=== PATIENT | female | born 1975 | race Caucasian/White ===

== ENCOUNTER 2018-10-07 16:54 | Emergency (ER) | payer BC ==
[2018-10-07] MEDS ORDERED: NORMAL SALINE 1000 ML 1,000 ML IV ONE (20:13)
[2018-10-07] MEDS ORDERED: ONDANSETRON HCL INJ/PF 4 MG/2 ML SDV IV ONE (20:13)
[2018-10-07] MEDS ORDERED: DICYCLOMINE HCL 20 MG TABLET PO ONE (20:14)
--- NOTE | 2018-10-07 20:17 | ER Document Report ---
ED Medical Screen (RME) - General Chief Complaint: Diarrhea Stated Complaint: DIARREHA Time Seen by Provider: 10/07/18 20:13 Mode of Arrival: Ambulatory Information source: Patient Notes: Patient presents with nausea vomiting diarrhea for the past 2 weeks. Patient patient denies any fever or blood in the stool. Patient does complain of lower pelvic cramping. Patient has been taking Imodium for the past several days without improvement of her symptoms. hx: Hypertension, cholesterol, hypothyroidism, anemia, cholecystectomy, tonsillectomy, right hip surgery I have greeted and performed a rapid initial assessment of this patient. A comprehensive ED assessment and evaluation of the patient, analysis of test results and completion of the medical decision making process will be conducted by additional ED providers. - Related Data Allergies/Adverse Reactions: sulfamethoxazole [From Bactrim] Allergy (Verified 10/07/18 16:56) trimethoprim [From Bactrim] Allergy (Verified 10/07/18 16:56) Physical Exam - Vital signs Vitals: Temp Pulse Resp BP Pulse Ox 98.0 F 86 18 126/80 H 98 10/07/18 16:57 10/07/18 16:57 10/07/18 16:57 10/07/18 16:57 10/07/18 16:57 - General Notes: Lower pelvic tenderness Course - Vital Signs Vital signs: Temp Pulse Resp BP Pulse Ox 98.0 F 86 18 126/80 H 98 10/07/18 16:57 10/07/18 16:57 10/07/18 16:57 10/07/18 16:57 10/07/18 16:57
[2018-10-07 22:09] LABS: ABSOLUTE EOSINOPHILS # (AUTO) 0.2 10^3/uL (0.0-0.6); ABSOLUTE LYMPHOCYTES (AUTO) 3.1 10^3/uL (0.5-4.7); ABSOLUTE MONOCYTES (AUTO) 0.7 10^3/uL (0.1-1.4); ABSOLUTE NEUT (AUTO) 5.2 10^3/uL (1.7-8.2); BASOPHILS % (AUTO) 0.4 % (0-2); EOSINOPHILS % (AUTO) 2.3 % (0-6); HEMOGLOBIN 14.3 g/dL (12.0-15.5); LYMPHOCYTES % (AUTO) 33.5 % (13-45); MEAN CORPUSCULAR HEMOGLOBIN 29.3 pg (27.0-33.4); MEAN CORPUSCULAR HGB CONC 33.2 g/dL (32.0-36.0); MEAN CORPUSCULAR VOLUME 88 fl (80-97); MONOCYTES % (AUTO) 7.8 % (3-13); PLATELET COUNT 529 10^3/uL (150-450); RED BLOOD COUNT 4.87 10^6/uL (3.72-5.28); RED CELL DISTRIBUTION WIDTH 13.8 % (11.5-14.0); TOTAL CELLS COUNTED % (AUTO) 100 %; WHITE BLOOD COUNT 9.2 10^3/uL (4.0-10.5)
[2018-10-07 22:14] LABS: APPEARANCE,URINE CLOUDY; BILIRUBIN,URINE NEGATIVE (NEGATIVE); CALCIUM OXALATE CRYSTALS,URINE FEW /HPF; COLOR,URINE YELLOW; GLUCOSE, URINE NEGATIVE (NEGATIVE); KETONES,URINE NEGATIVE (NEGATIVE); LEUKOCYTE ESTERASE,URINE NEGATIVE (NEGATIVE); NITRITE,URINE NEGATIVE (NEGATIVE); PROTEIN,URINE NEGATIVE (NEGATIVE); URINE SPECIFIC GRAVITY 1.014; UROBILINOGEN,URINE NEGATIVE mg/dL (<2.0)
[2018-10-07 22:28] LABS: ALANINE AMINOTRANSFERASE 108 U/L (9-52); ALBUMIN 4.8 g/dL (3.5-5.0); ALKALINE PHOSPHATASE 70 U/L (38-126); ANION GAP 14 (5-19); ASPARTATE AMINO TRANSFERASE 62 U/L (14-36); BILIRUBIN,DIRECT 0.3 mg/dL (0.0-0.4); BILIRUBIN,TOTAL 0.6 mg/dL (0.2-1.3); BLOOD UREA NITROGEN 9 mg/dL (7-20); CALCIUM 9.8 mg/dL (8.4-10.2); CARBON DIOXIDE 25 mmol/L (22-30); CHLORIDE 102 mmol/L (98-107); GLUCOSE 81 mg/dL (75-110); LIPASE 174.5 U/L (23-300); POTASSIUM 4.6 mmol/L (3.6-5.0); SODIUM 140.8 mmol/L (137-145); TOTAL PROTEIN 7.8 g/dL (6.3-8.2)
[2018-10-07] MEDS ORDERED: VANCOMYCIN HCL INJ 500 MG VIAL PO ONE (22:49)
[2018-10-07] MEDS ORDERED: PROMETHAZINE HCL 25 MG TABLET PO ONE (22:50)
--- NOTE | 2018-10-07 22:56 | ER Document Report ---
ED General - General Chief Complaint: Diarrhea Stated Complaint: DIARREHA Time Seen by Provider: 10/07/18 20:13 Mode of Arrival: Ambulatory - HPI Notes: Patient is a 43-year-old female who presents emergency department for evaluation of nausea and diarrhea. Her symptoms have been present for nearly a month. At one point she was having approximately 18-20 episodes of diarrhea a day. She had been on an antibiotic for nearly a month secondary to an abscessed tooth. She does have a history of C. difficile. She had one test that was negative for C. difficile toxin. She was also treated empirically with Flagyl which did not improve her symptoms. She is had no isabel fevers. She is had nausea but no emesis. She is cramping diffuse abdominal pain intermittently. - Related Data Allergies/Adverse Reactions: sulfamethoxazole [From Bactrim] Allergy (Verified 10/07/18 16:56) trimethoprim [From Bactrim] Allergy (Verified 10/07/18 16:56) Past Medical History - General Information source: Patient - Social History Smoking Status: Unknown if Ever Smoked Family History: Reviewed & Not Pertinent - Medical History Medical History: Other - History of C. difficile Endocrine Medical History: Reports: Hx Hypothyroidism GI Medical History: Reports: Hx Gastroesophageal Reflux Disease Review of Systems - Review of Systems Constitutional: Malaise, Weight loss EENT: No symptoms reported Cardiovascular: No symptoms reported Respiratory: No symptoms reported Gastrointestinal: See HPI Genitourinary: No symptoms reported Female Genitourinary: No symptoms reported Musculoskeletal: No symptoms reported Skin: No symptoms reported Neurological/Psychological: No symptoms reported Physical Exam - Vital signs Vitals: Temp Pulse Resp BP Pulse Ox 98.0 F 86 18 126/80 H 98 10/07/18 16:57 10/07/18 16:57 10/07/18 16:57 10/07/18 16:57 10/07/18 16:57 - Notes Notes: Vital signs reviewed, please refer to chart. Head is normocephalic, atraumatic. Pupils equal round, reactive to light. Neck is supple without meningismus. Heart is regular rate and rhythm. Lungs are clear to auscultation bilaterally. Abdomen is soft, nontender, normoactive bowel sounds throughout. Extremities without cyanosis, clubbing. Posterior calves are nontender. Peripheral pulses are equal. Skin is warm and dry. Patient is awake, alert, neurological exam is nonfocal. Course - Re-evaluation Re-evalutation: 10/07/18 22:53 Presents emergency department for evaluation. She had multiple laboratory investigations, was administered Bentyl, fluids, Zofran. She is feeling somewhat improved. At this point I do believe is reasonable to empirically treat the patient for C. difficile infection. She is Maxwell failed Flagyl. We will go ahead and treat her with vancomycin. She also requests Phenergan for nausea. This was administered as well. I will write her a small prescription. She is to be referred on to primary care, she just moved to the area. She is to return the ED with worsening or new concerning symptoms of any sort. - Vital Signs Vital signs: Temp Pulse Resp BP Pulse Ox 98.0 F 86 18 126/80 H 98 10/07/18 16:57 10/07/18 16:57 10/07/18 16:57 10/07/18 16:57 10/07/18 16:57 - Laboratory Result Diagrams: 10/07/18 21:44 10/07/18 21:44 Laboratory results interpreted by me: 10/07/18 10/07/18 10/07/18 21:44 21:44 21:44 Plt Count 529 H AST 62 H ALT 108 H Urine Blood SMALL H Discharge - Discharge Clinical Impression: C. difficile diarrhea, Nausea Diarrhea Qualifiers: Diarrhea type: infectious Qualified Code(s): A09 - Infectious gastroenteritis and colitis, unspecified Condition: Stable Disposition: HOME, SELF-CARE Instructions: C. (Clostridium) Difficile Infection ([facility]) Additional Instructions: Take all the antibiotic as prescribed until gone. Avoid antidiarrheals. Stay well-hydrated. Follow-up with primary care physician conference planner, or the physician of your choice in 1 to 2 weeks. Return to the emergency department with wors ening or new concerning symptoms of any sort.
[2018-10-07 23:23] VITALS: BP 146/88
== END 2018-10-07 23:23 | disposition home or self-care (01) ==
LOC: ER 16:54
DX: A04.72 Enterocolitis due to Clostridium difficile, not specified as recurrent (principal); R11.0 Nausea; R10.84 Generalized abdominal pain; R53.81 Other malaise; R63.4 Abnormal weight loss; Z88.1 Allergy status to other antibiotic agents
CPT/HCPCS: 99284; 96361; 96374; 36415; 83690; 84703; 85025; 80053; 81001; J3490; J2405; J3370; J7030

== ENCOUNTER → 2019-01-02 | Outpatient (CLI) | payer MEDICAID ==
--- NOTE | 2019-01-02 12:51 | RADIOLOGY REPORT (SQ) ---
EXAM DESCRIPTION: ANKLE LEFT COMPLETE COMPLETED DATE/TIME: 01/02/2019 10:48 am REASON FOR STUDY: CHRONIC PAIN OF LEFT ANKLE M25.572 PAIN IN LEFT ANKLE AND JOINTS OF LEFT FOOT COMPARISON: None. NUMBER OF VIEWS: Three views. TECHNIQUE: AP, lateral, and oblique without weight bearing radiographic images acquired of the left ankle. LIMITATIONS: None. FINDINGS: MINERALIZATION: Normal. BONES: No acute fracture or dislocation. No worrisome bone lesions. No significant osteophytes. JOINTS: No effusions. SOFT TISSUES: No soft tissue swelling. No foreign body. OTHER: No other significant finding. IMPRESSION: NO SIGNIFICANT FINDING IN THE LEFT ANKLE. NO EXPLANATION FOR PAIN. TECHNICAL DOCUMENTATION: JOB ID: [id number] [employer]- All Rights Reserved Reading location - IP/workstation name: [email or web address]
== END ==
LOC: OD 10:35
PROVIDERS: ATTEND Nurse Practitioner Family
DX: M25.572 Pain in left ankle and joints of left foot (principal)

== ENCOUNTER → 2019-09-15 | Outpatient (CLI) | payer MEDICAID ==
--- NOTE | 2019-09-15 12:09 | RADIOLOGY REPORT (SQ) ---
EXAM DESCRIPTION: U/S RETROPERITON (RENAL/AORTA) IMAGES COMPLETED DATE/TIME: 09/15/2019 11:34 am REASON FOR STUDY: N39.44 NOCTURNAL ENURESIS N39.44 NOCTURNAL ENURESIS COMPARISON: None. TECHNIQUE: Dynamic and static grayscale images acquired of the kidneys and bladder and recorded on P ACS. Additional selected color Doppler and spectral images recorded. LIMITATIONS: None. FINDINGS: RIGHT KIDNEY: Normal size measuring 11.4 cm. Normal echogenicity. No solid or suspicious m asses. No hydronephrosis. No calcifications. LEFT KIDNEY: Normal size measuring 11.8 cm. Normal echogenicity. No solid or suspicious masses. No h ydronephrosis. No calcifications. BLADDER: No masses. OTHER FINDINGS: Incidentally visualized left ovary measuring 5.1 x 3.9 x 3.3 cm. IMPRESSION: Unremarkable renal ultrasound. No hydronephrosis. Prominent left ovary likely secondary to dominant follicle, partially evaluated. TECHNICAL DOCUMENTATION: JOB ID: [id number] 2010 [employer]- All Rights Reserved Reading location - IP/workstation name: [email or web address]
== END ==
LOC: RAD 11:05
PROVIDERS: ATTEND Nurse Practitioner Family
DX: N39.44 Nocturnal enuresis (principal)
CPT/HCPCS: 76770

== ENCOUNTER → 2019-10-05 | Outpatient (CLI) | payer MEDICAID ==
--- NOTE | 2019-10-05 12:36 | WOMENS IMAGING REPORT ---
EXAM DESCRIPTION: BILAT SCREENING MAMMO W/CAD IMAGES COMPLETED DATE/TIME: 10/05/2019 11:47 am REASON FOR STUDY: Z12.31 ENCOUNTER FOR SCREENING MAMMOGRAM FOR MALIGNANT NEOPLASM OF BREAST Z12.31 ENCNTR SCREEN MAMMOGRAM FOR MALIGNANT NEOPLASM OF ANNE MARIE COMPARISON: None. EXAM PARAMETERS: Standard craniocaudal and mediolateral oblique views of each breast recorded using digital acquisition. Read with the assistance of CAD. .[facility] - [employer] Implementation Project Coordinator Version 9.2 LIMITATIONS: None. FINDINGS: No suspicious masses, suspicious calcifications or architectural distortion. No areas of c oncern. IMPRESSION: NEGATIVE MAMMOGRAM. BIRADS 1 BREAST DENSITY: c. The breasts are heterogeneously dense, which may obscure small masses. BIRAD: ASSESSMENT: 1 NEGATIVE RECOMMENDATION: ROUTINE SCREENING COMMENT: The patient has been notified of the results by letter per MQSA requirements. Additional no tification policies are in place for contacting patient with suspicious or incomplete findings. Quality ID #[id number]: The [employer] recommends an annual screening mammogram for women aged 40 years or over. This facility utilizes a reminder system to ensure that all patients receive reminder letters, and/or direct phone calls for appointments. This includes reminders for routine scr eening mammograms, diagnostic mammograms, or other Breast Imaging Interventions when appropriate. Th is patient will be placed in the appropriate reminder system. TECHNICAL DOCUMENTATION: FINDING NUMBER: (1) ASSESSMENT: (1) JOB ID: [id number] 2010 [employer]- All Rights Reserved Reading location - IP/workstation name: [email or web address]
== END ==
LOC: WI 11:10
PROVIDERS: ATTEND Nurse Practitioner Family
DX: Z12.31 Encounter for screening mammogram for malignant neoplasm of breast (principal)
CPT/HCPCS: 77067

== ENCOUNTER 2020-03-19 12:21 | Emergency (ER) | payer MEDICAID ==
[2020-03-19] MEDS ORDERED: ACETAMINOPHEN 325 MG TABLET PO ONE (13:25)
--- NOTE | 2020-03-19 13:26 | ER Document Report ---
HPI - HPI Patient complains to provider of: left ankle injury Time Seen by Provider: 03/19/20 13:21 Pain Level: 4 Context: 44-year-old female presents to the emergency room complaining of left ankle pain. Patient states she fell down approximately 3 stairs yesterday twisting her left ankle. No history of previous ankle fractures. Has been using an Malachi wrap and ibuprofen with some relief. Able to walk without difficulty. Associated Symptoms: None Exacerbated by: Movement Relieved by: Remaining still Similar symptoms previously: No Recently seen / treated by doctor: No - ROS Systems Reviewed and Negative: Yes All other systems reviewed and negative - NEURO Neurology: DENIES: Weakness - REPRODUCTIVE Reproductive: DENIES: : - MUSCULOSKELETAL Musculoskeletal: REPORTS: Extremity pain - left ankle Past Medical History - Social History Smoking Status: Never Smoker Frequency of alcohol use: None Drug Abuse: None Family History: Reviewed & Not Pertinent - Past Medical History Cardiac Medical History: Reports: Hx Hypercholesterolemia, Hx Hypertension Endocrine Medical History: Reports: Hx Hypothyroidism Renal/ Medical History: Denies: Hx Peritoneal Dialysis GI Medical History: Reports: Hx Gastroesophageal Reflux Disease Psychiatric Medical History: Reports: Hx Depression Past Surgical History: Reports: Hx Orthopedic Surgery Vertical Provider Document - CONSTITUTIONAL Agree With Documented VS: Yes Exam Limitations: No Limitations General Appearance: Moderate Distress - INFECTION CONTROL TRAVEL OUTSIDE OF THE [place] IN LAST 30 DAYS: No - HEENT HEENT: Atraumatic, Normocephalic - NECK Neck: Normal Inspection, Supple - RESPIRATORY Respiratory: Breath Sounds Normal, No Respiratory Distress - CARDIOVASCULAR Cardiovascular: Regular Rate, Regular Rhythm - MUSCULOSKELETAL/EXTREMETIES Musculoskeletal/Extremeties: Tender - Tenderness on palpation over the left medial malleus. Moderate swelling of the left medial malleus. Tenderness over the dorsal aspect midfoot left foot. There is swelling. No obvious deformity palpated. Notes: Painful range of motion with flexion, extension as well as eversion and inversion to the left ankle. - NEURO Level of Consciousness: Awake, Alert, Appropriate Motor/Sensory: No Motor Deficit, No Sensory Deficit Notes: Positive left pedal pulse. Capillary refill less than 3 seconds. - DERM Integumentary: Warm, Dry Course - Re-evaluation Re-evalutation: 03/19/20 14:35 Patient is resting comfortably she is ambulatory with a steady gait. Reviewed x-ray results with patient. Aircast applied by nursing staff as documented. Outpatient follow-up with orthopedics as discussed. On-call physician was provided. Tylenol as needed for pain. Patient was given strict return to the emergency room guidelines. Return for any new or worsening symptoms. All questions were answered. Patient verbalized understanding and agrees with plan of care. - Vital Signs Vital signs: Temp Pulse Resp BP Pulse Ox 98.0 F 71 16 122/75 96 03/19/20 12:37 03/19/20 12:37 03/19/20 12:37 03/19/20 12:37 03/19/20 12:37 - Laboratory Results Critical Laboratory Results Reviewed: No Critical Results - Radiology Results Critical Radiology Results Reviewed: No Critical Results Procedures - Immobilization Left Foot Time completed: 14:52 Pre-Proc Neuro Vasc Exam: Normal Immobilizer type: Ankle stirrup, Crutches Performed by: RN Post-Proc Neuro Vasc Exam: Normal Alignment checked and good: Yes Discharge - Discharge Clinical Impression: Avulsion fracture of distal fibula Condition: Stable Disposition: HOME, SELF-CARE Instructions: Avulsion Fracture of the Ankle ([facility]) Additional Instructions: Rest, ice, elevate your left ankle. Can remove splinting for bathing. Outpatient follow-up with orthopedics as discussed. Tylenol as needed for pain. Return to the emergency room for any new or worsening symptoms. Referrals: BLOSSOM KIM FNP-C [Primary Care Provider] - Follow up as needed DIAMOND JEREZ DO [ACTIVE STAFF] - Follow up tomorrow (Call tomorrow for an outpatient follow-up appointment)
--- NOTE | 2020-03-19 14:15 | RADIOLOGY REPORT (SQ) ---
EXAM DESCRIPTION: ANKLE LEFT COMPLETE IMAGES COMPLETED DATE/TIME: 03/19/2020 2:01 pm REASON FOR STUDY: injury COMPARISON: None. NUMBER OF VIEWS: Three views. TECHNIQUE: AP, lateral, and oblique radiographic images acquired of the left ankle. LIMITATIONS: None. FINDINGS: MINERALIZATION: Normal. BONES: Subtle irregularity seen of the distal fibula may represent a tiny avulsion injury. No worris ome bone lesions. JOINTS: No effusions. SOFT TISSUES: Soft tissue swelling overlies the lateral malleolus. OTHER: No other significant finding. IMPRESSION: Lateral soft tissue swelling with likely tiny avulsion injury of the distal fibula. TECHNICAL DOCUMENTATION: JOB ID: [id number] 2010 [employer]- All Rights Reserved Reading location - IP/workstation name: [email or web address]
[2020-03-19 15:07] VITALS: BP 142/95
== END 2020-03-19 15:08 | disposition home or self-care (01) ==
LOC: ER 12:21
DX: S99.912A Unspecified injury of left ankle, initial encounter (principal); W10.9XXA Fall (on) (from) unspecified stairs and steps, initial encounter; E78.00 Pure hypercholesterolemia, unspecified; I10 Essential (primary) hypertension; E03.9 Hypothyroidism, unspecified
CPT/HCPCS: 29515; 99283; 73610; J3490